=== PATIENT | female | born 1955 | race Caucasian/White ===

== ENCOUNTER → 2024-03-08 | Outpatient (REF) | payer MEDICARE, BC ==
[2024-03-08 12:53] LABS: AMORPHOUS SEDIMENT SMALL (NEGATIVE); APPEARANCE, URINE CLEAR (CLEAR); BACTERIA, URINE AUTO NEGATIVE (NEGATIVE); BILIRUBIN, URINE AUTO NEGATIVE (NEGATIVE); BLOOD, URINE BLOOD NEGATIVE (NEGATIVE); COLOR, URINE YELLOW (YELLOW); GLUCOSE, URINE (UA) AUTO NEGATIVE (NEGATIVE); KETONE, URINE AUTO NEGATIVE (NEGATIVE); LEUKOCYTE ESTERASE, URINE AUTO NEGATIVE (NEGATIVE); MUCUS, URINE SMALL (NEGATIVE); NITRITE, URINE AUTO NEGATIVE (NEGATIVE); PROTEIN, URINE AUTO NEGATIVE (NEGATIVE); RBC, URINE AUTO 1 /HPF (0-3); SPECIFIC GRAVITY URINE AUTO 1.009 (1.002-1.035); SQUAMOUS EPITHELIAL CELL UR AU 2 /HPF (0-6); UROBILINOGEN, URINE AUTO 0.2 mg/dL (0.0-2.0); WBC, URINE AUTO 0 /HPF (0-3)
== END ==
LOC: M SMT 12:05
PROVIDERS: ATTEND Specialist
DX: Z01.818 Encounter for other preprocedural examination (principal); Z79.899 Other long term (current) drug therapy

== ENCOUNTER 2024-04-12 07:20 | Day surgery (SDC) | payer MEDICARE, BC ==
[~2024-04-12] VITALS: Ht 167.6 cm; Wt 79.7 kg
[~2024-04-12 07:20] MED LIST: AMIT10TA7 PO; COLA100C5 PO; LOVA10TA PO; MAGN400C PO; MIRA3350 PO; MULTTAB61 PO; NAPR-837 PO; RA K500C PO; VITA100093 PO
[2024-04-12] MEDS: ceFAZolin SOD 2 GM in IV 1 EA IV ONE (07:22)
[2024-04-12] MEDS: LR 1,000 ML IV SCH (08:19)
[2024-04-12] MEDS ORDERED: fentaNYL 100 MCG/2 ML INJECTION As Ordered ONE (08:52)
[2024-04-12] MEDS ORDERED: MIDAZOLAM INJ 2MG/2ML VIAL As Ordered ONE (08:52)
[2024-04-12] MEDS ORDERED: LIDOCAINE 2% 100MG/5ML SDV (FOR ANES.) As Ordered ONE (08:53)
[2024-04-12] MEDS ORDERED: propofoL 200 MG/20 ML VIAL As Ordered ONE (08:53)
[2024-04-12] MEDS ORDERED: ACETAMINOPHEN 1000MG 100ML IV BAG As Ordered ONE (09:25)
[2024-04-12] MEDS ORDERED: ONDANSETRON 4MG 2ML VIAL As Ordered ONE (09:25)
[2024-04-12] MEDS ORDERED: PHENYLephrine 500MCG 5ML (100MCG/ML) SYRINGE As Ordered ONE (10:01)
[2024-04-12] MEDS ORDERED: ePHEDrine SULFATE 25 MG/5 ML(5MG/ML) SYRINGE As Ordered ONE (10:01)
[2024-04-12] MEDS: GENTAMICIN SULF 80MG/2ML VIAL As Ordered ONE (10:30)
[2024-04-12] MEDS ORDERED: fentaNYL 100 MCG/2 ML INJECTION IV PRN (10:55)
[2024-04-12] MEDS ORDERED: LR 1,000 ML IV SCH (10:55)
[2024-04-12] MEDS: HYDROMORPHONE HCL 0.5 MG/ 0.5 ML SYRINGE IV PRN (11:21)
[2024-04-12] MEDS: ONDANSETRON 4MG 2ML VIAL IV PRN (11:22)
[2024-04-12] MEDS ORDERED: OXYC1TAB23 PO (11:22)
[2024-04-12] MEDS: oxyCODONE 5MG TAB PO PRN (11:22)
[2024-04-12] MEDS: METOCLOPRAMIDE INJ 10MG/2ML VIAL IV PRN (12:09)
[2024-04-12 13:02] VITALS: BP 130/76; TEMP 97.8; O2SAT 96
== END 2024-04-12 13:30 | disposition home or self-care (01) ==
LOC: M SDC 07:20
PROVIDERS: ATTEND Specialist
DX: N81.6 Rectocele (principal); R32 Unspecified urinary incontinence; K59.00 Constipation, unspecified; G43.909 Migraine, unspecified, not intractable, without status migrainosus; Z79.899 Other long term (current) drug therapy
CPT/HCPCS: 45560; C1762; J0131; J0665; J0690; J1100; J1170; J1580; J2250; J2371; J2405; J2765; J3010

== ENCOUNTER → 2024-04-23 | Outpatient (REF) | payer MEDICARE, BC ==
[~2024-04-23] MED LIST changes: +OXYC1TAB23 PO
[2024-04-23 18:43] LABS: AMORPHOUS SEDIMENT SMALL (NEGATIVE); APPEARANCE, URINE CLOUDY (CLEAR); BACTERIA, URINE AUTO 1+ (NEGATIVE); BILIRUBIN, URINE AUTO NEGATIVE (NEGATIVE); BLOOD, URINE BLOOD NEGATIVE (NEGATIVE); COLOR, URINE YELLOW (YELLOW); GLUCOSE, URINE (UA) AUTO NEGATIVE (NEGATIVE); KETONE, URINE AUTO NEGATIVE (NEGATIVE); LEUKOCYTE ESTERASE, URINE AUTO 1+ (NEGATIVE); MUCUS, URINE SMALL (NEGATIVE); NITRITE, URINE AUTO NEGATIVE (NEGATIVE); PROTEIN, URINE AUTO NEGATIVE (NEGATIVE); RBC, URINE AUTO 8 /HPF (0-3); SPECIFIC GRAVITY URINE AUTO 1.012 (1.002-1.035); SQUAMOUS EPITHELIAL CELL UR AU 0 /HPF (0-6); UROBILINOGEN, URINE AUTO 0.2 mg/dL (0.0-2.0); WBC, URINE AUTO 13 /HPF (0-3)
== END ==
LOC: M SMT 17:07
PROVIDERS: ATTEND Urology
DX: N39.0 Urinary tract infection, site not specified (principal)